=== PATIENT | male | born 1965 | race Asian ===

== ENCOUNTER 2017-02-07 04:21 | Emergency (ER) | payer OTHER ==
[2017-02-07 04:39] VITALS: BMI 26.5
--- NOTE | 2017-02-07 05:00 | PDOC ---
History of Present Illness - General History Source: Patient Exam Limitations: No Limitations - History of Present Illness Initial Comments: 02/07/17 05:33 The patient is a 51-year-old male with a significant past medical history of diabetes, CHF, end stage renal failure (on peritoneal dialysis every 4 to 6 hours), and presents to the emergency department BIBA with hypoglycemia and s/p fall from bed tonight. As per daughter, she heard the patient fall out of his bed, and she found the patient minimally responsive and still attached to the peritoneal dialysis bag that he started. She states the patient was lying facedown in a puddle of the dialysis liquid. The daughter believes the patient may have hit his head on the bedside table. He reports a mild headache secondary to the fall. The patient reports he did not eat his dinner tonight. As per EMS, his blood sugar was low at 37, and he was A&O x1 en route to the ED. He reports that he had a fever and cough recently, and took Darci-[place] Plus tonight after which he began to feel sleepy. He reports that he will be getting his dialysis tubing changed on Wednesday. He denies any head trauma or LOC. The patient denies chest pain, shortness of breath, and dizziness. The patient denies chills, nausea, vomit, diarrhea and constipation. The patient denies dysuria, frequency, urgency and hematuria. Allergies: NKDA Past Surgical History: abdominal tube placement for peritoneal dialysis Social History: no toxic habits reported PCP: Dr. Edis Causey Monotype Caster: Dr. Melara Location Manager: Dr. Marie <Anh Goetz - Last Filed: 02/07/17 05:33> <Nidhi Tejeda - Last Filed: 02/08/17 01:19> - General Chief Complaint: Blood Sugar Problem Stated Complaint: FALL/LOW BLOOD SUGAR Time Seen by Provider: 02/07/17 05:00 Past History <Anh Goetz - Last Filed: 02/07/17 05:33> - Past Medical History Diabetes: Yes Dialysis: Yes (Peritoneal) Kidney Stones: Yes (RF) - Surgical History Abdominal Surgery: No Appendectomy: No Cardiac Surgery: No Cholecystectomy: No Gastric Stapling: No GI Surgery: No Lung Surgery: No Neurologic Surgery: No - Immunization History Immunization Up to Date: No - Psycho/Social/Smoking Cessation Hx Anxiety: No Suicidal Ideation: No Smoking History: Never smoked Have you smoked in the past 12 months: No Information on smoking cessation initiated: No Hx Alcohol Use: No Drug/Substance Use Hx: No Substance Use Type: None <Nidhi Tejeda - Last Filed: 02/08/17 01:19> - Past Medical History Allergies/Adverse Reactions: Allergies Allergy/AdvReac Type Severity Reaction Status Date / Time No Known Allergies Allergy Verified 02/07/17 04:40 Home Medications: Ambulatory Orders Benzonatate [Tessalon Pearls -] 100 mg PO TID #30 capsule 02/07/17 Ezetimibe 12.5 mg PO BID 02/07/17 Furosemide [Lasix -] 40 mg PO DAILY 02/07/17 Glimepiride 20 mg PO DAILY 02/07/17 Insulin Glargine,Hum.rec.anlog [Lantus Solostar PEN (NF)] 6 units SQ HS Insulin NPH Hum/Reg Insulin Hm [Humulin 70/30 Kwikpen] 6 - 8 unit IVS TID Linagliptin [Tradjenta] 5 mg PO DAILY 02/07/17 Lisinopril 10 mg PO DAILY 02/07/17 Review of Systems - Review of Systems Able to Perform ROS?: Yes Comments:: 02/07/17 05:33 CONSTITUTIONAL: Present: (+) hypoglycemia Absent: fever, chills, diaphoresis, generalized weakness, malaise, loss of appetite HEENT: Absent: rhinorrhea, nasal congestion, throat pain, throat swelling, difficulty swallowing, mouth swelling, ear pain, eye pain, visual changes CARDIOVASCULAR: Absent: chest pain, syncope, palpitations, irregular heart rate, lightheadedness , peripheral edema RESPIRATORY: Absent: cough, shortness of breath, dyspnea with exertion, orthopnea, wheezing, stridor, hemoptysis GASTROINTESTINAL: Absent: abdominal pain, abdominal distension, nausea, vomiting, diarrhea, constipation, melena, hematochezia GENITOURINARY: Absent: dysuria, frequency, urgency, hesitancy, hematuria, flank pain, genital pain MUSCULOSKELETAL: Absent: myalgia, arthralgia, joint swelling SKIN: Absent: rash, itching, pallor HEMATOLOGIC/IMMUNOLOGIC: Absent: easy bleeding, easy bruising, lymphadenopathy, frequent infections ENDOCRINE: Absent: unexplained weight gain, unexplained weight loss, heat intolerance, cold intolerance NEUROLOGIC: Present: (+) headache s/p fall Absent: focal weakness or paresthesias, dizziness, unsteady gait, seizure, mental status changes, bladder or bowel incontinence PSYCHIATRIC: Absent: anxiety, depression, suicidal or homicidal ideation, hallucinations. <Anh Goetz - Last Filed: 02/07/17 05:33> *Physical Exam - Vital Signs Last Vital Signs Temp Pulse Resp BP Pulse Ox 97.7 F 66 18 163/78 100 02/07/17 04:32 02/07/17 04:32 02/07/17 04:32 02/07/17 04:32 02/07/17 04:32 - Physical Exam Comments: 02/07/17 05:33 GENERAL: Afebrile. Well developed, well nourished. Awake and alert. No acute distress. HEENT: Normocephalic, atraumatic, no hematomas on head. PERRLA, EOMI. No conjunctival pallor. Sclera are non-icteric. Moist mucous membranes. Oropharynx is clear. NECK: Supple. Full ROM. No JVD. Carotid pulses 2+ and symmetric, without bruits. No thyromegaly. No lymphadenopathy. CARDIOVASCULAR: Regular rate and rhythm. No murmurs, rubs, or gallops. Distal pulses are 2+ and symmetric. PULMONARY: No evidence of respiratory distress. Lungs clear to auscultation bilaterally. No wheezing, rales or rhonchi. ABDOMINAL: (+) Dialysis site looked good with no bleeding or leakage around site. Soft. Non -tender. Non-distended. No rebound or guarding. No organomegaly. Normoactive bowel sounds. MUSCULOSKELETAL (+) No cervical spine pain. No spinal pain. Normal range of motion at all joints. No bony deformities or tenderness. No CVA tenderness. EXTREMITIES: No cyanosis. No clubbing. No pitting edema. No calf tenderness. SKIN: Warm and dry. Normal capillary refill. No rashes. No jaundice. NEUROLOGICAL: Alert, awake, appropriate. Cranial nerves 2-12 intact. No deficits to light touch and temperature in face, upper extremities and lower extremities. No motor deficits in the in face, upper extremities and lower extremities. Normoreflexic in the upper and lower extremities. Normal speech. Toes are down- going bilaterally. PSYCHIATRIC: Cooperative. Good eye contact. Appropriate mood and affect. <GoetzKeishaAnh - Last Filed: 02/07/17 05:33> - Vital Signs Last Vital Signs Temp Pulse Resp BP Pulse Ox 97.7 F 66 18 163/78 100 02/07/17 04:32 02/07/17 04:32 02/07/17 04:32 02/07/17 04:32 02/07/17 04:32 <Nidhi Tejeda - Last Filed: 02/08/17 01:19> ED Treatment Course - LABORATORY CBC & Chemistry Diagram: 02/07/17 05:18 02/07/17 05:18 <Anh oGetz - Last Filed: 02/07/17 05:33> - LABORATORY CBC & Chemistry Diagram: 02/07/17 05:18 02/07/17 05:18 <Nidhi Tejeda - Last Filed: 02/08/17 01:19> Medical Decision Making - Medical Decision Making 02/07/17 06:31 Patient Name: Olman Henry This is a preliminary report by imaging batch or continuous still operator Exam: Noncontrast CT head Images: 80 Clinical indication: Hypoglycemia. Status post fall from bed. Findings: Multiple axial images were obtained of the brain without contrast. There is no mass-effect, midline shift or hemorrhage. There is no intra-axial or extra-axial fluid collection. The visualized portions of the paranasal sinuses are clear. The middle ear cavities and mastoids are clear. Impression: No mass effect or intracranial hemorrhage. THIS DOCUMENT HAS BEEN ELECTRONICALLY SIGNED Labs are pending. 02/07/17 06:51 CBC is normal; chem is pending. Pt fell out of bed, hypoglycemic. 37blood sugar. Pt was found by daughter when she heard a thud on the ground. Family called EMS, EMS gave glucose paste to the patient and he woke up. No neuro deficits in the ER. Pt is alert. States that he took darci seltzer nighttime cold preparation, got drowsy during his peritoneal dialysis that he manages himself QID. He fell asleep and rolled off his bed, which is 2 feet off from the ground. Pt has no pain and no broken nomes. Pt's head CT is normal. CXR is boot shaped heart -pt has known cardiomegaly and CHF. Pt has no complaints. He is due to replace his peritoneal catheter on Wednesday. He has no abd pain, but knows to consider SBP in case of fever early next week or abd pain next week. Pt has chem pending. He will be signed out to the day ER doc, who will feed him breakfast and d/c patient once he tolerates PO. Pt is stable for d/c. Repeat FS now is 129. <Nidhi Tejeda - Last Filed: 02/08/17 01:19> *DC/Admit/Observation/Transfer - Attestations Scribe Attestion: 02/07/17 05:34 Documentation prepared by Anh Goetz, acting as medical physiologist for Nidhi Tejeda MD. <Anh Goetz - Last Filed: 02/07/17 05:33> <Nidhi Tejeda - Last Filed: 02/08/17 01:19> Diagnosis at time of Disposition: Hypoglycemia - Discharge Dispostion Disposition: HOME Condition at time of disposition: Good - Prescriptions Prescriptions: Benzonatate [Tessalon Pearls -] 100 mg PO TID #30 capsule - Referrals Referrals: STAFF,NOT ON [Primary Care Provider] - - Patient Instructions Additional Instructions: Mr Henry- Make sure you eat today. Check your sugars frequently. Return to us if any problems. See your doctor this week Best- Dr. Saroj Jackson
[2017-02-07 05:26] LABS: BASOPHIL 0.7 % (0-2.0); EOSINOPHIL 5.5 % (0-4.5); MCH 32.4 pg (25.7-33.7); MCHC 34.5 g/dl (32.0-35.9); MEAN CELL VOLUME 93.9 fl (80-96); MEAN PLT VOLUME 7.6 fl (7.5-11.1); NEUTROPHILS 69.2 % (42.8-82.8); PLATELET COUNT 156 K/MM3 (134-434); RDW 12.8 % (11.9-15.9); WHITE BLOOD COUNT 4.8 K/mm3 (4.0-10.0)
[2017-02-07] MEDS ORDERED: guaiFENesin 200 MG/10 ML 10 ML UNIT-DOSE CUPS PO ONE (06:09)
[2017-02-07] MEDS ORDERED: ACETAMINOPHEN WITH CODEINE 300MG/30MG TABLET PO ONE (06:09)
[2017-02-07] MEDS ORDERED: ACETAMINOPHEN WITH CODEINE 300MG/30MG TABLET ONE (06:15)
[2017-02-07] MEDS ORDERED: guaiFENesin/D-METHORPHAN HB 10 ML UNIT-DOSE CUPS ONE (06:16)
[2017-02-07 07:02] LABS: ALBUMIN 3.1 g/dl (3.4-5.0); BILIRUBIN,TOTAL 0.3 mg/dL (0.2-1.0); COCKROFT - GAULT 23.04; CREATININE 4.4 mg/dL (0.7-1.3); TOT PROT 6.7 g/dl (6.4-8.2)
[2017-02-07 07:10] VITALS: TEMP 97.9
--- NOTE | 2017-02-07 07:12 | PDOC ---
*Physical Exam - Vital Signs Last Vital Signs Temp Pulse Resp BP Pulse Ox 97.9 F 63 18 141/83 99 02/07/17 07:10 02/07/17 06:40 02/07/17 06:40 02/07/17 06:40 02/07/17 06:40 ED Treatment Course - LABORATORY CBC & Chemistry Diagram: 02/07/17 05:18 02/07/17 05:18 - ADDITIONAL ORDERS Additional order review: Laboratory Results 02/07/17 05:18 Sodium 135 L Potassium 4.1 Chloride 95 L Carbon Dioxide 27 Anion Gap 13 BUN 45 H Creatinine 4.4 H Creat Clearance w eGFR 14.14 Random Glucose 68 L Calcium 8.0 L Total Bilirubin 0.3 AST 29 ALT 26 Alkaline Phosphatase 57 Total Protein 6.7 Albumin 3.1 L 02/07/17 05:18 RBC 3.83 L MCV 93.9 MCHC 34.5 RDW 12.8 MPV 7.6 Neutrophils % 69.2 Lymphocytes % 13.1 Monocytes % 11.5 H Eosinophils % 5.5 H Basophils % 0.7 - Medications Given in the ED: ED Medications Discontinued Medications Generic Name Dose Route Start Last Admin Trade Name Renatoq PRN Reason Stop Dose Admin Acetaminophen/Codeine Phosphate 2 tab 02/07/17 06:09 02/07/17 06:18 Tylenol # 3 - PO 02/07/17 06:10 2 tab ONCE ONE Administration Guaifenesin 10 ml 02/07/17 06:09 02/07/17 06:18 Robitussin - PO 02/07/17 06:10 10 ml ONCE ONE Administration Medical Decision Making - Medical Decision Making 02/07/17 08:59 Sugars stabilized - Patient wants to go home. Most recent Blood Sugar is 98 *DC/Admit/Observation/Transfer Diagnosis at time of Disposition: Hypoglycemia - Discharge Dispostion Disposition: HOME Condition at time of disposition: Good - Prescriptions Prescriptions: Benzonatate [Tessalon Pearls -] 100 mg PO TID #30 capsule - Referrals Referrals: STAFF,NOT ON [Primary Care Provider] - - Patient Instructions Additional Instructions: Mr Henry- Make sure you eat today. Check your sugars frequently. Return to us if any problems. See your doctor this week Best- Dr. Saroj Jackson - Post Discharge Activity
[2017-02-07 09:17] VITALS: BP 125/76; PULSE 74
== END 2017-02-07 09:37 | disposition home or self-care (01) ==
LOC: SUPCPDRO 04:21 → JER 04:21
DX: E16.1 Other hypoglycemia (principal); I50.9 Heart failure, unspecified; E11.9 Type 2 diabetes mellitus without complications; Z79.4 Long term (current) use of insulin; I12.0 Hypertensive chronic kidney disease with stage 5 chronic kidney disease or end stage renal disease; E08.22 Diabetes mellitus due to underlying condition with diabetic chronic kidney disease; N18.6 End stage renal disease; N17.8 Other acute kidney failure; Z99.2 Dependence on renal dialysis
CPT/HCPCS: 36415; 70450-TC; 71010-TC; 80053; 85025; 99283-25

== ENCOUNTER 2017-02-08 09:53 | Observation (INO) | payer OTHER ==
[2017-02-08 10:12] VITALS: BMI 26.5
--- NOTE | 2017-02-08 10:37 | PDOC ---
History of Present Illness - General History Source: Patient, Old Records Exam Limitations: No Limitations - History of Present Illness Initial Comments: 02/08/17 10:38 The patient is a 51-year-old man, accompanied by family, with a significant past medical history of hypertension, hypercholesterolemia, end-stage renal disease (on peritoneal dialysis placed on December 2016; q. 6-12 hours), diabetes mellitus, pneumonia and congestive heart failure, who presents to the emergency department via walk-in for further evaluation of hypoglycemia and altered mental status. As per patient's daughter, the patient had endorsed an intermitted productive cough with yellow phlegm for the past week. Patient was evaluated Wednesday morning at [facility] for which a Chest X-Ray and Flu Swab was performed and was negative. That night, the patient presented to this ED, due to a fall and altered mental status. He was also was found to be hypoglycemic to 37 in field by EMS. Workup included Head CT, Chest X-Ray, which were negative for any acute pathology. Patient's sugars were stabilized and he was discharged with a blood glucose measurement of 98. Post discharge, the patient was feeling better and had eggs and potatoes at a dinner. During the evening, the patient had some soup with a piece of bread and was noted to vomit. He was found this morning, at approximately 09:00AM, coughing constantly, warm to the touch, lying flat and sweaty. Patient;s daughter attempted to give him orange juice, but the patient vomited. She states that the patient was stating that he felt off and didn't feel good and wanted EMS to be activated. Patient was found to have a blood glucose of 70 in field. Patient admits that he does not recall these events and only recalls his way to the ER via ambulance. He admits he has regained full consciousness on ED arrival. Patient's daughter expresses concern for possible peritoneal dialyses catheter infection, due to his fever. Patient was scheduled to have his catheter changes today at 10:00AM at [facility]. Patient currently complains of a mild headache. No other symptoms. No chest pain , shortness of breath, lightheadedness, dizziness, abdominal pain, diarrhea. No urinary complaints. Allergies: No Known Drug Allergies. Past Surgical History: Abdominal tube placement for peritoneal dialysis. Angioplasty. Social History: No tobacco, EtOH and recreational drug use. Primary Care Physician: Dr. Edis Causey Private Branch Exchange Installer: Dr. Marie Rrt: Dr. Lincoln [phone] <CarrascoRebeka - Last Filed: 02/08/17 12:48> <AndrewDevang - Last Filed: 02/08/17 12:52> - General Stated Complaint: DIABETIC EPISODE Time Seen by Provider: 02/08/17 10:10 Past History <Rebeka Carrasco - Last Filed: 02/08/17 12:48> - Past Medical History Diabetes: Yes Dialysis: Yes (Peritoneal) GI Disorders: Yes (esrf) Kidney Stones: Yes (RF) - Surgical History Abdominal Surgery: No Appendectomy: No Cardiac Surgery: Yes (angioplasty) Cholecystectomy: No Gastric Stapling: No GI Surgery: No Lung Surgery: No Neurologic Surgery: No - Immunization History Immunization Up to Date: No - Psycho/Social/Smoking Cessation Hx Anxiety: No Suicidal Ideation: No Smoking History: Never smoked Have you smoked in the past 12 months: No Hx Alcohol Use: No Drug/Substance Use Hx: No Substance Use Type: None <Lonnie Moralesfaele - Last Filed: 02/08/17 12:52> - Past Medical History Allergies/Adverse Reactions: Allergies Allergy/AdvReac Type Severity Reaction Status Date / Time No Known Allergies Allergy Verified 02/08/17 10:12 Home Medications: Ambulatory Orders Benzonatate [Tessalon Pearls -] 100 mg PO TID #30 capsule 02/07/17 Furosemide [Lasix -] 40 mg PO DAILY 02/07/17 Insulin Glargine,Hum.rec.anlog [Lantus Solostar PEN (NF)] 6 units SQ HS Insulin NPH Hum/Reg Insulin Hm [Humulin 70/30 Kwikpen] 6 - 8 unit IVS TID Linagliptin [Tradjenta] 5 mg PO DAILY 02/07/17 Lisinopril 10 mg PO DAILY 02/07/17 Ezetimibe 0 mg PO BID 02/08/17 Glimepiride [Amaryl -] 0 mg PO DAILY 02/08/17 Review of Systems - Review of Systems Constitutional: Yes: Chills, Fever, Night Sweats Respiratory: Yes: Cough. No: Shortness of Breath Cardiac (ROS): No: Chest Pain ABD/GI: Yes: Vomiting. No: Constipated, Diarrhea : No: Dysuria Musculoskeletal: No: Muscle Pain Integumentary: No: Rash Neurological: No: Headache All Other Systems: Reviewed and Negative <Devang Morales - Last Filed: 02/08/17 12:52> *Physical Exam - Vital Signs Last Vital Signs Temp Pulse Resp BP Pulse Ox 97.6 F 68 20 166/84 97 02/08/17 10:00 02/08/17 10:00 02/08/17 10:00 02/08/17 10:00 02/08/17 10:00 - Physical Exam Comments: 02/08/17 10:38 GENERAL: The patient is awake, alert, and fully oriented, in no acute distress. HEAD: Normal with no signs of trauma. EYES: Pupils equal, round and reactive to light, extraocular movements intact, sclera anicteric, conjunctiva clear with no pallor. ENT: Ears normal, nares patent, oropharynx clear without exudates. Moist mucous membranes. NECK: Normal range of motion, supple without lymphadenopathy, JVD, or masses. LUNGS: There are some slight crackles at the bases, bilaterally HEART: Regular rate and rhythm, normal S1 and S2 without murmur or rub. ABDOMEN: Right periotoneal dialysis catheter site. Soft/nontender/nondistended. BS wnl. No guarding or rebound. No palpable masses. No hepatosplenomegaly. EXTREMITIES: Normal range of motion, no edema. No clubbing or cyanosis. No cords, erythema, or tenderness. NEUROLOGICAL: Cranial nerves II through XII grossly intact. Normal speech, normal gait. PSYCH: Normal mood, normal affect. SKIN: Warm, Dry, normal turgor, no rashes or lesions noted. <Rebeka Carrasco - Last Filed: 02/08/17 12:48> - Vital Signs Last Vital Signs Temp Pulse Resp BP Pulse Ox 97.6 F 68 20 166/84 97 02/08/17 10:00 02/08/17 10:00 02/08/17 10:00 02/08/17 10:00 02/08/17 10:00 <Devang Morales - Last Filed: 02/08/17 12:52> Heart Score/ECG Review #1 ECG reviewed & interpreted by me at: 10:04 General ECG Interpretation: Sinus Rhythm, Normal Rate (82), Normal Intervals ( qtc 511, RBBB), No acute ischemic changes (TWI V3) Compared to previous ECG there are: Previous ECG unavail <Devang Morales - Last Filed: 02/08/17 12:52> ED Treatment Course - LABORATORY CBC & Chemistry Diagram: 02/08/17 11:20 02/08/17 11:20 <Rebeka Carrasco - Last Filed: 02/08/17 12:48> - LABORATORY CBC & Chemistry Diagram: 02/08/17 11:20 02/08/17 11:20 <Devang Morales - Last Filed: 02/08/17 12:52> Medical Decision Making - Medical Decision Making 02/08/17 12:[address] Hartman. Immediate response. Case was discussed. <Rebeka Carrasco - Last Filed: 02/08/17 12:48> - Medical Decision Making 02/08/17 11:49 A portion of this note was documented by scribe services under my direction. I have reviewed the details of the note, within reason, and agree with the documentation with the following case summary and management plan written by me. 51-year-old male with history of hypertension, end-stage renal disease on peritoneal dialysis management primarily at [facility] presented for the first time here 2 nights ago with fall in the setting of hypoglycemia, was discharged after workup was unremarkable. Patient presents now with yet another episode of disorientation/altered mental status in the setting of hypoglycemia and persistent vomiting with subjective fevers and chills and cough for one week. Patient performs his own peritoneal dialysis about 4 times a day, denies any abdominal pain. Afebrile here, vital signs normal, alert and oriented Atraumatic soft/nontender/nondistended. Peritoneal dialysis catheter in place and right lower quadrant neurologically intact 51-year-old male with end-stage renal disease/peritoneal dialysis presents with labile glucose levels and transient alteration of consciousness. Presentation overall seems most concerning for infectious/septic process, question pneumonia given the cough, question gastritis given the vomiting, question SBP. Sepsis protocol initiated, all cultures sent including peritoneal fluid IV fluids Chest x-ray, EKG Reassess, likely admission. 02/08/17 12:50 White count 7.5 with normal differential, lactate normal, creatinine at 4.1 with troponin 0.11, urinalysis clear without evidence of infection, peritoneal fluid analysis White blood cell count is pending, but glucose level is normal. Chest x-ray without acute infiltrate. Overall remains oriented at this time, we'll admit for continued sepsis workup and monitoring of labile glucose levels. Accepted for inpatient med/surg by Dr. Hartman <Devang Morales - Last Filed: 02/08/17 12:52> *DC/Admit/Observation/Transfer - Attestations Scribe Attestion: 02/08/17 10:39 Documentation prepared by Rebeka Carrasco, acting as medical records auditor for Devang Morales MD. <Rebeka Carrasco - Last Filed: 02/08/17 12:48> - Discharge Dispostion Admit: Yes <Devang Morales - Last Filed: 02/08/17 12:52> Diagnosis at time of Disposition: End-stage renal disease on peritoneal dialysis, Hypoglycemia Altered mental status Qualifiers: Altered mental status type: transient alteration of awareness Qualified Code(s) : R40.4 - Transient alteration of awareness - Discharge Dispostion Condition at time of disposition: Fair - Referrals Referrals: STAFF,NOT ON [Primary Care Provider] -
[2017-02-08] MEDS ORDERED: SODIUM CHLORIDE 1,000 ML IV STA (10:56)
[2017-02-08 11:33] LABS: VENOUS PH 7.35 (7.32-7.42)
[2017-02-08 11:35] LABS: BASOPHIL 0.4 % (0-2.0); EOSINOPHIL 1.6 % (0-4.5); MCH 32.6 pg (25.7-33.7); MCHC 34.6 g/dl (32.0-35.9); MEAN CELL VOLUME 94.4 fl (80-96); MEAN PLT VOLUME 8.2 fl (7.5-11.1); NEUTROPHILS 84.2 % (42.8-82.8); PLATELET COUNT 173 K/MM3 (134-434); WHITE BLOOD COUNT 7.5 K/mm3 (4.0-10.0)
[2017-02-08 11:40] LABS: URINE APPEARANCE CLEAR; URINE BILIRUBIN NEGATIVE (NEGATIVE); URINE COLOR LTYELLOW; URINE GLUCOSE (UA) NEGATIVE (NEGATIVE); URINE KETONE NEGATIVE (NEGATIVE); URINE LEUK ESTERASE NEGATIVE (NEGATIVE); URINE NITRITE NEGATIVE (NEGATIVE); URINE UROBILINOGEN NEGATIVE E.U./dl (0.2-1.0)
[2017-02-08 11:42] LABS: URINE BLOOD 1+ (NEGATIVE); URINE PROTEIN 2+ (NEGATIVE)
[2017-02-08 11:53] LABS: ALBUMIN 3.2 g/dl (3.4-5.0); CALCIUM 8.6 mg/dL (8.5-10.1); COCKROFT - GAULT 24.73; CREATININE 4.1 mg/dL (0.7-1.3)
[2017-02-08 11:58] LABS: BILIRUBIN,TOTAL 0.5 mg/dL (0.2-1.0); INR 0.99 (0.82-1.09); PROTHROMBIN TIME (PATIENT) 10.9 SEC (9.98-11.88); TOT PROT 7.1 g/dl (6.4-8.2); TROPONIN I 0.11 ng/ml (0.00-0.05)
[2017-02-08 12:01] LABS: ACTIVATED PTT 30.3 SECONDS (26.9-34.4)
[2017-02-08 12:29] LABS: URINE MUCUS RARE; URINE RBC 2 /hpf (0-3); URINE WBC 1 /hpf (3-5)
[2017-02-08] MEDS ORDERED: VANCOMYCIN 1,000 MG in DEXTROSE 5%-WATER - 250 ML IVPB ONE (12:49)
[2017-02-08] MEDS ORDERED: PIPERACILLIN/TAZOB 3.375 GM/50 ML PRE-DOCKED IVPB ONE (12:49)
[2017-02-08] MEDS ORDERED: PIPERACILLIN/TAZOB 3.375 GM 50 ML IVPB ONE (13:05)
[2017-02-08] MEDS ORDERED: VANCOMYCIN 1 GRAM (PRE-DOCKED) 250 ML IVPB ONE (13:09)
--- NOTE | 2017-02-08 13:59 | EKG ---
Test Reason : Blood Pressure : / mmHG Vent. Rate : 082 BPM Atrial Rate : 082 BPM P-R Int : 172 ms QRS Dur : 140 ms QT Int : 438 ms P-R-T Axes : 019 -51 -01 degrees QTc Int : 511 ms NORMAL SINUS RHYTHM LEFT AXIS DEVIATION RIGHT BUNDLE BRANCH BLOCK ABNORMAL ECG NO PREVIOUS ECGS AVAILABLE Confirmed by DON LEYVA, ROBIN ([id number]) on 02/08/2017 1:59:18 PM Referred By: Confirmed By:ROBIN OCHOA MD
[2017-02-08] MEDS: PERITONEAL DIALYSIS 2.5% IP SCH ×2 (15:13→22:22)
[2017-02-08 15:25] LABS: PERITONEAL FLUID LYMPHOCYTE 10 %; PERITONEAL FLUID MACROPHAGE 89 %; PERITONEAL FLUID MESOTHELIAL 1 %
--- NOTE | 2017-02-08 18:05 | HP ---
Admitting History and Physical - Primary Care Physician PCP: Marifer Hartman - Admission History of Present Illness: 51-year-old man, accompanied by family, with a significant past medical history of hypertension, hypercholesterolemia, end-stage renal disease (on peritoneal dialysis placed on December 2016; q. 6-12 hours), diabetes mellitus, pneumonia and congestive heart failure, who presents to the emergency department via walk-in for further evaluation of hypoglycemia and altered mental status. As per patient 's daughter, the patient had endorsed an intermitted productive cough with yellow phlegm for the past week. Patient was evaluated Wednesday morning at [facility] for which a Chest X-Ray and Flu Swab was performed and was negative. That night, the patient presented to this ED, due to a fall and altered mental status. He was also was found to be hypoglycemic to 37 in field by EMS. Workup included Head CT, Chest X-Ray, which were negative for any acute pathology. Patient's sugars were stabilized and he was discharged with a blood glucose measurement of 98. - Past Medical History Cardiovascular: Yes: HTN, Hyperlipdemia Renal/: Yes: Other (ESR) - Smoking History Smoking history: Never smoked Have you smoked in the past 12 months: No - Alcohol/Substance Use Hx Alcohol Use: No Home Medications - Allergies Allergies/Adverse Reactions: Allergies Allergy/AdvReac Type Severity Reaction Status Date / Time No Known Allergies Allergy Verified 02/08/17 10:12 - Home Medications Home Medications: Ambulatory Orders Benzonatate [Tessalon Perle -] 100 mg PO TID #30 capsule 02/07/17 Furosemide [Lasix -] 40 mg PO DAILY 02/07/17 Insulin Glargine,Hum.rec.anlog [Lantus Solostar PEN -] 6 units SQ HS 02/07/17 Insulin NPH Hum/Reg Insulin Hm [Humulin 70/30 Kwikpen] 6 - 8 unit IVS TID Linagliptin [Tradjenta] 5 mg PO DAILY 02/07/17 Lisinopril 10 mg PO DAILY 02/07/17 Ezetimibe 0 mg PO BID 02/08/17 Glimepiride [Glimepiride -] 0 mg PO DAILY 02/08/17 Amoxicillin/Potassium Clav [Augmentin 875-125 Tablet] 1 each PO BID #14 tablet 02/09/17 Physical Examination Vital Signs: Vital Signs Temperature 97.9 F 02/08/17 14:50 Pulse Rate 66 02/08/17 14:50 Respiratory Rate 18 02/08/17 14:50 Blood Pressure 149/78 02/08/17 14:50 O2 Sat by Pulse Oximetry (%) 96 02/08/17 15:01 Constitutional: Yes: No Distress Eyes: Yes: Conjunctiva Clear HENT: Yes: Atraumatic Neck: Yes: Supple Cardiovascular: Yes: Regular Rate and Rhythm Respiratory: Yes: CTA Bilaterally Gastrointestinal: Yes: Normal Bowel Sounds Extremities: Yes: WNL Neurological: Yes: Alert, Oriented Problem List - Problems (1) Altered mental status Assessment/Plan: could be due to hypo glycemia better now Code(s): R41.82 - ALTERED MENTAL STATUS, UNSPECIFIED Qualifiers: Altered mental status type: transient alteration of awareness Qualified Code(s): R40.4 - Transient alteration of awareness (2) ESRD on peritoneal dialysis Code(s): N18.6 - END STAGE RENAL DISEASE Z99.2 - DEPENDENCE ON RENAL DIALYSIS (3) Hypoglycemia Code(s): E16.2 - HYPOGLYCEMIA, UNSPECIFIED (4) Diabetes Code(s): E11.9 - TYPE 2 DIABETES MELLITUS WITHOUT COMPLICATIONS Assessment/Plan Laboratory Tests 02/08/17 02/08/17 02/08/17 10:04 11:15 11:18 WBC RBC Hgb Hct MCV MCHC RDW Plt Count MPV Neutrophils % Lymphocytes % Monocytes % Eosinophils % Basophils % INR PTT (Actin FS) VBG pH 7.35 POC VBG pCO2 48.2 POC VBG pO2 28.7 Mixed VBG HCO3 26.0 H Sodium Potassium Chloride Carbon Dioxide Anion Gap BUN Creatinine Creat Clearance w eGFR POC Glucometer [id number] Random Glucose Lactic Acid Calcium Total Bilirubin AST ALT Alkaline Phosphatase Creatine Kinase Creatine Kinase Index CK-MB (CK-2) CK-MB (CK-2) Rel Index Troponin I Total Protein Albumin Urine Color Urine Appearance Urine pH Ur Specific [place] Urine Protein Urine Glucose (UA) Urine Ketones Urine Blood Urine Nitrite Urine Bilirubin Urine Urobilinogen Ur Leukocyte Esterase Urine RBC Urine WBC Urine Mucus Peritoneal WBC 36 Peritoneal RBC 310 Periton Neutrophils Y Periton Lymphocytes 10 Periton Mesothelial 1 Periton Macrophages 89 Peritoneal Tot Protein 0 Peritoneal Albumin 0 Peritoneal LDH 15 Peritoneal Glucose 293 Peritoneal Amylase 7 Blood Type Antibody Screen 05/02/08/17 02/08/17 11:20 11:20 11:20 WBC 7.5 D RBC 4.15 Hgb 13.5 Hct 39.1 MCV 94.4 MCHC 34.6 RDW 13.0 Plt Count 173 MPV 8.2 Neutrophils % 84.2 H D Lymphocytes % 8.5 D Monocytes % 5.3 Eosinophils % 1.6 Basophils % 0.4 INR 0.99 PTT (Actin FS) 30.3 VBG pH POC VBG pCO2 POC VBG pO2 Mixed VBG HCO3 Sodium Potassium Chloride Carbon Dioxide Anion Gap BUN Creatinine Creat Clearance w eGFR POC Glucometer Random Glucose Lactic Acid Calcium Total Bilirubin AST ALT Alkaline Phosphatase Creatine Kinase Creatine Kinase Index CK-MB (CK-2) CK-MB (CK-2) Rel Index Troponin I Total Protein Albumin Urine Color Ltyellow Urine Appearance Clear Urine pH 6.0 Ur Specific [place] 1.015 Urine Protein 2+ H Urine Glucose (UA) Negative Urine Ketones Negative Urine Blood 1+ H Urine Nitrite Negative Urine Bilirubin Negative Urine Urobilinogen Negative Ur Leukocyte Esterase Negative Urine RBC 2 Urine WBC 1 Urine Mucus Rare Peritoneal WBC Peritoneal RBC Periton Neutrophils Periton Lymphocytes Periton Mesothelial Periton Macrophages Peritoneal Tot Protein Peritoneal Albumin Peritoneal LDH Peritoneal Glucose Peritoneal Amylase Blood Type Antibody Screen 02/08/17 02/08/17 02/08/17 11:20 11:20 11:20 WBC RBC Hgb Hct MCV MCHC RDW Plt Count MPV Neutrophils % Lymphocytes % Monocytes % Eosinophils % Basophils % INR PTT (Actin FS) VBG pH POC VBG pCO2 POC VBG pO2 Mixed VBG HCO3 Sodium 137 Potassium 4.7 Chloride 97 L Carbon Dioxide 26 Anion Gap 14 BUN 45 H Creatinine 4.1 H Creat Clearance w eGFR 15.34 POC Glucometer Random Glucose 78 Lactic Acid 1.102 Calcium 8.6 Total Bilirubin 0.5 D AST 38 H D ALT 30 Alkaline Phosphatase 60 Creatine Kinase 907 H Creatine Kinase Index 0.7 CK-MB (CK-2) 5.619 H CK-MB (CK-2) Rel Index Troponin I 0.11 H Total Protein 7.1 Albumin 3.2 L Urine Color Urine Appearance Urine pH Ur Specific [place] Urine Protein Urine Glucose (UA) Urine Ketones Urine Blood Urine Nitrite Urine Bilirubin Urine Urobilinogen Ur Leukocyte Esterase Urine RBC Urine WBC Urine Mucus Peritoneal WBC Peritoneal RBC Periton Neutrophils Periton Lymphocytes Periton Mesothelial [place] Macrophages Peritoneal Tot Protein Peritoneal Albumin Peritoneal LDH Peritoneal Glucose Peritoneal Amylase Blood Type O POSITIVE Antibody Screen Negative 02/08/17 11:20 WBC RBC Hgb Hct MCV MCHC RDW Plt Count MPV Neutrophils % Lymphocytes % Monocytes % Eosinophils % Basophils % INR PTT (Actin FS) VBG pH POC VBG pCO2 POC VBG pO2 Mixed VBG HCO3 Sodium Potassium Chloride Carbon Dioxide Anion Gap BUN Creatinine Creat Clearance w eGFR POC Glucometer Random Glucose Lactic Acid Calcium Total Bilirubin AST ALT Alkaline Phosphatase Creatine Kinase Creatine Kinase Index CK-MB (CK-2) CK-MB (CK-2) Rel Index Cancelled Troponin I Total Protein Albumin Urine Color Urine Appearance Urine pH Ur Specific [place] Urine Protein Urine Glucose (UA) Urine Ketones Urine Blood Urine Nitrite Urine Bilirubin Urine Urobilinogen Ur Leukocyte Esterase Urine RBC Urine WBC Urine Mucus Peritoneal WBC Peritoneal RBC Periton Neutrophils Periton Lymphocytes Periton Mesothelial [place] Macrophages Peritoneal Tot Protein Peritoneal Albumin Peritoneal LDH Peritoneal Glucose Peritoneal Amylase Blood Type Antibody Screen Active Medications Generic Name Dose Route Start Last Admin Trade Name Freq PRN Reason Stop Dose Admin Peritoneal Dialysis Solution 3,000 mls @ 750 mls/hr 02/08/17 13:15 02/08/17 15: 13 Dianeal 2.5% IP 750 mls/hr Q6H NANCY Administration a/p 1.dm will check bgms, hold po meds could be that pt was dizzy due to hypoglycemia 2.cough with plegm will start abx for bronchtis cxtr no pna 3.esrd on peritoneal dialysis
--- NOTE | 2017-02-08 18:41 | CONSULT ---
Consult Consult Specialty:: infectious disease Reason for Consultation:: r/o pneumonia,cough - History of Present Illness Chief Complaint: cough sob History of Present Illness: 51-year-old man, accompanied by family, with a significant past medical history of hypertension, hypercholesterolemia, end-stage renal disease (on peritoneal dialysis placed on December 2016; q. 6-12 hours), diabetes mellitus, pneumonia and congestive heart failure, who got admitted because of hypoglycemia and altered mental status. As per patient's daughter, the patient had endorsed an intermitted productive cough with yellow phlegm for the past week. Patient was evaluated Wednesday morning at [facility] for which a Chest X-Ray and Flu Swab was performed and was negative. That night, the patient presented to this ED, due to a fall and altered mental status. He was also was found to be hypoglycemic to 37 in field by EMS. Workup included Head CT, Chest X-Ray, which were negative for any acute pathology. Patient's sugars were stabilized and he was discharged with a blood glucose measurement of 98. The above was the history of the patient patient was evaluated and started on treatment discussing with the patient now he says he feels much better and breathing is much better also - History Source History Provided By: Patient, Medical Record Limitations to Obtaining History: No Limitations - Past Medical History Cardio/Vascular: Yes: HTN, Hyperlipdemia Renal/: Yes: Other (ESR) - Alcohol/Substance Use Hx Alcohol Use: No - Smoking History Smoking history: Never smoked Have you smoked in the past 12 months: No Home Medications - Allergies Allergies/Adverse Reactions: Allergies Allergy/AdvReac Type Severity Reaction Status Date / Time No Known Allergies Allergy Verified 02/08/17 10:12 - Home Medications Home Medications: Ambulatory Orders Benzonatate [Tessalon Perle -] 100 mg PO TID #30 capsule 02/07/17 Furosemide [Lasix -] 40 mg PO DAILY 02/07/17 Insulin Glargine,Hum.rec.anlog [Lantus Solostar PEN -] 6 units SQ HS 02/07/17 Insulin NPH Hum/Reg Insulin Hm [Humulin 70/30 Kwikpen] 6 - 8 unit IVS TID Linagliptin [Tradjenta] 5 mg PO DAILY 02/07/17 Lisinopril 10 mg PO DAILY 02/07/17 Ezetimibe 0 mg PO BID 02/08/17 Amoxicillin/Potassium Clav [Augmentin 875-125 Tablet] 1 each PO BID #14 tablet 02/09/17 Review of Systems - Review of Systems Constitutional: reports: Other Eyes: reports: No Symptoms HENT: reports: No Symptoms Neck: reports: No Symptoms Cardiovascular: reports: No Symptoms Respiratory: reports: Cough, SOB, Wheezing, Other (sputum production) Gastrointestinal: reports: No Symptoms Genitourinary: reports: No Symptoms Musculoskeletal: reports: Muscle Weakness Neurological: reports: No Symptoms Endocrine: reports: No Symptoms Hematology/Lymphatic: reports: No Symptoms Psychiatric: reports: No Symptoms Physical Exam Vital Signs: Vital Signs Temperature 97.9 F 02/08/17 14:50 Pulse Rate 66 02/08/17 14:50 Respiratory Rate 18 02/08/17 14:50 Blood Pressure 149/78 02/08/17 14:50 O2 Sat by Pulse Oximetry (%) 96 02/08/17 18:09 Constitutional: Yes: Well Nourished, Mild Distress Eyes: Yes: Conjunctiva Clear HENT: Yes: Atraumatic Neck: Yes: Supple Cardiovascular: Yes: Regular Rate and Rhythm Respiratory: Yes: On Nasal O2, Poor Air Entry, Rhonchi Gastrointestinal: Yes: Normal Bowel Sounds, Soft Musculoskeletal: Yes: WNL Extremities: Yes: WNL Integumentary: Yes: WNL Neurological: Yes: Alert, Oriented Psychiatric: Yes: Alert, Oriented Imaging - Results Chest X-ray: Report Reviewed, Image Reviewed Assessment/Plan after evaluating the patient he is showing more of a bronchitits type of picture with congestion i do not think patient has active pna thought there might be some element playing a part he already has been on abx Problem List - Problems (1) Altered mental status Assessment/Plan: could be due to hypo glycemia better now Code(s): R41.82 - ALTERED MENTAL STATUS, UNSPECIFIED Qualifiers: Altered mental status type: transient alteration of awareness Qualified Code(s): R40.4 - Transient alteration of awareness (2) ESRD on peritoneal dialysis Code(s): N18.6 - END STAGE RENAL DISEASE Z99.2 - DEPENDENCE ON RENAL DIALYSIS (3) Hypoglycemia Code(s): E16.2 - HYPOGLYCEMIA, UNSPECIFIED (4) Diabetes Code(s): E11.9 - TYPE 2 DIABETES MELLITUS WITHOUT COMPLICATIONS plan continue abx for now can switch to oral abx tomorrow
[2017-02-08] MEDS ORDERED: INSULIN (NOVOLOG) ASPART 100 UNITS/ML 10ML VIAL ONE (18:46)
[2017-02-08] MEDS: INSULIN SLIDING SCALE (NOVOLOG) 1 VIAL SQ SCH ×2 (18:49→21:40)
[2017-02-08] MEDS: CEFTRIAXONE 50 ML IVPB SCH (19:17)
[2017-02-08 20:24] LABS: TROPONIN I 0.14 ng/ml (0.00-0.05)
[2017-02-08] MEDS: AZITHROMYCIN 250 MG TABLET (FP) PO SCH (21:39)
[2017-02-08] MEDS ORDERED: EZETIMIBE 10 MG TABLET (FP) PO SCH ×2 (22:00)
[2017-02-09] MEDS: PERITONEAL DIALYSIS 2.5% IP SCH ×5 (01:25→19:07)
[2017-02-09] MEDS: INSULIN SLIDING SCALE (NOVOLOG) 1 VIAL SQ SCH ×3 (06:40→16:46)
[2017-02-09] MEDS ORDERED: sitaGLIPtin PHOSPHATE 25 MG TABLET (FP) PO SCH (07:00)
[2017-02-09] MEDS ORDERED: PT OWN MED DRAWER 7, Y5N ONE (09:38)
--- NOTE | 2017-02-09 09:40 | PN ---
Progress Note, Physician History of Present Illness: patient doing much better no new issues cough much less breathing much better - Current Medication List Current Medications: Active Medications Azithromycin (Zithromax -) 250 mg PO DAILY [facility] Last Admin: 02/08/17 21:39 Dose: 250 mg Ezetimibe (Zetia -) 10 mg PO BID [facility] Furosemide (Lasix -) 40 mg PO DAILY [facility] Peritoneal Dialysis Solution (Dianeal 2.5%) 3,000 mls @ 750 mls/hr IP Q6H [facility] Last Admin: 02/09/17 01:25 Dose: Not Given Ceftriaxone Sodium (Rocephin 1gm Ivpb (Pre-Docked)) 50 mls @ 100 mls/hr IVPB DAILY [facility] Last Admin: 02/08/17 19:17 Dose: 100 mls/hr Insulin Aspart (Novolog Vial Sliding Scale -) 1 vial SQ ACHS [facility] PRN Reason: Protocol Last Admin: 02/09/17 06:40 Dose: Not Given Sitagliptin Phosphate (Januvia -) 25 mg PO DAILY@0700 [facility] Last Admin: 02/09/17 06:43 Dose: 25 mg - Objective Vital Signs: Vital Signs Temperature 98.4 F 02/09/17 05:57 Pulse Rate 72 02/09/17 05:57 Respiratory Rate 20 02/09/17 05:57 Blood Pressure 142/78 02/09/17 05:57 O2 Sat by Pulse Oximetry (%) 96 02/09/17 00:23 Constitutional: Yes: No Distress, Calm Cardiovascular: Yes: Regular Rate and Rhythm Respiratory: Yes: Poor Air Entry, Rhonchi Gastrointestinal: Yes: Normal Bowel Sounds, Soft Musculoskeletal: Yes: WNL Extremities: Yes: WNL Neurological: Yes: Alert, Oriented Psychiatric: Yes: Alert, Oriented Labs: INR, PTT INR 0.99 (0.82-1.09) 02/08/17 11:20 Assessment/Plan after evaluating the patient he is showing more of a bronchitits type of picture with congestion i do not think patient has active pna thought there might be some element playing a part he already has been on abx Problem List - Problems (1) Altered mental status Assessment/Plan: could be due to hypo glycemia better now Code(s): R41.82 - ALTERED MENTAL STATUS, UNSPECIFIED Qualifiers: Altered mental status type: transient alteration of awareness Qualified Code(s): R40.4 - Transient alteration of awareness (2) ESRD on peritoneal dialysis Code(s): N18.6 - END STAGE RENAL DISEASE Z99.2 - DEPENDENCE ON RENAL DIALYSIS (3) Hypoglycemia Code(s): E16.2 - HYPOGLYCEMIA, UNSPECIFIED (4) Diabetes Code(s): E11.9 - TYPE 2 DIABETES MELLITUS WITHOUT COMPLICATIONS plan can switch to oral abx incentive collette rest as per primary team follow up with primary care
[2017-02-09 09:42] VITALS: BP 148/90; TEMP 98.1
[2017-02-09] MEDS: CEFTRIAXONE 50 ML IVPB SCH (09:42)
[2017-02-09] MEDS: AZITHROMYCIN 250 MG TABLET (FP) PO SCH (09:43)
[2017-02-09] MEDS ORDERED: PATIENT'S OWN MEDICATION (NON-FORMULARY) (Linagliptin [Tradjenta] 5 MG) PO SCH (10:00)
[2017-02-09] MEDS ORDERED: FUROSEMIDE 40 MG TABLET (FP) PO SCH (10:00)
[2017-02-09 14:36] VITALS: PULSE 70
[2017-02-09] MEDS ORDERED: INSULIN (NOVOLOG) ASPART 100 UNITS/ML 10ML VIAL ONE (16:42)
--- NOTE | 2017-02-09 17:01 | DS ---
Physical Examination Vital Signs: Vital Signs Temperature 98.1 F 02/09/17 14:34 Pulse Rate 70 02/09/17 14:34 Respiratory Rate 20 02/09/17 14:34 Blood Pressure 148/90 02/09/17 09:00 O2 Sat by Pulse Oximetry (%) 96 02/09/17 10:00 Constitutional: Yes: No Distress HENT: Yes: Atraumatic Neck: Yes: Supple Cardiovascular: Yes: Regular Rate and Rhythm Respiratory: Yes: CTA Bilaterally Gastrointestinal: Yes: Normal Bowel Sounds Extremities: Yes: WNL Neurological: Yes: Alert, Oriented Discharge Summary Reason For Visit: END STAGE RENAL DISEASE; ALTERED MENTAL STATUS Current Active Problems Altered mental status (Acute) Diabetes (Acute) ESRD on peritoneal dialysis (Acute) Hypoglycemia (Acute) Condition: Fair - Instructions Diet, Activity, Other Instructions: need to see pmd regarding his diabetes meds see inspectors and regulatory officers stop glimiperide Referrals: Zane Amador MD [Staff Physician] - STAFF,NOT ON [Primary Care Provider] - - Home Medications Comprehensive Discharge Medication List: Ambulatory Orders Benzonatate [Tessalon Perle -] 100 mg PO TID #30 capsule 02/07/17 Furosemide [Lasix -] 40 mg PO DAILY 02/07/17 Insulin Glargine,Hum.rec.anlog [Lantus Solostar PEN -] 6 units SQ HS 02/07/17 Insulin NPH Hum/Reg Insulin Hm [Humulin 70/30 Kwikpen] 6 - 8 unit IVS TID Linagliptin [Tradjenta] 5 mg PO DAILY 02/07/17 Lisinopril 10 mg PO DAILY 02/07/17 Ezetimibe 0 mg PO BID 02/08/17 Glimepiride [Glimepiride -] 0 mg PO DAILY 02/08/17 Amoxicillin/Potassium Clav [Augmentin 875-125 Tablet] 1 each PO BID #14 tablet 02/09/17 dc home on p abx fu pmd/endocrine as out pt will dc glimpiride d/w pt and daughter med list and treatment plan
[2017-02-09 18:40] LABS: TROPONIN I 0.09 ng/ml (0.00-0.05)
== END 2017-02-09 19:27 | disposition home or self-care (01) ==
LOC: JER 09:53 → JERBED 12:52 → UNDOADMOB 12:52 → INTOOBSV 12:52 → JERBED 14:37 → J6S 14:37
PROVIDERS: ADMIT Internal Medicine; ATTEND Internal Medicine
PROC: 3E03329 Introduction of Other Anti-infective into Peripheral Vein, Percutaneous Approach (ICD-10-PCS; principal; 2017-02-08)
PROC: 3E033GC Introduction of Other Therapeutic Substance into Peripheral Vein, Percutaneous Approach (ICD-10-PCS; 2017-02-08)
PROC: 3E013VG Introduction of Insulin into Subcutaneous Tissue, Percutaneous Approach (ICD-10-PCS; 2017-02-08)
DX: R40.4 Transient alteration of awareness (principal); I12.0 Hypertensive chronic kidney disease with stage 5 chronic kidney disease or end stage renal disease; E11.22 Type 2 diabetes mellitus with diabetic chronic kidney disease; N18.6 End stage renal disease; E16.2 Hypoglycemia, unspecified; I50.9 Heart failure, unspecified; E78.5 Hyperlipidemia, unspecified; Z79.4 Long term (current) use of insulin; Z99.2 Dependence on renal dialysis; Z87.01 Personal history of pneumonia (recurrent); Z98.61 Coronary angioplasty status
CPT/HCPCS: 36415; 71010-TC; 80053; 81003; 81015; 82042; 82150; 82550; 82553; 82803; 82945; 83605; 83615; 84157; 84484; 85025; 85610; 85730; 86850; 86900; 86901; 87040; 87070; 87075; 87086; 87205; 89051; 93005; 93010; 99285-25; G0378

== ENCOUNTER 2023-12-30 18:31 | Inpatient (IN) | payer OTHER, BC ==
[2023-12-30 19:05] VITALS: BMI 28.8
[2023-12-30 19:08] LABS: VENOUS BASE EXCESS -4.2 mmol/L (-2-2); VENOUS O2 SATURATION 48.8 % (70-80); VENOUS PCO2 40.4 mmHg (38-52); VENOUS PH 7.339 (7.310-7.410)
[2023-12-30 19:16] LABS: BASO % 0.7 % (0-2.0); EOS % 0.5 % (0-4.5); HEMATOCRIT 36.2 % (35.4-49); HEMOGLOBIN 12.2 GM/dL (11.7-16.9); LYMPH % 8.2 % (8-40); MCH 32.5 pg (25.7-33.7); MCHC 33.8 g/dl (32.0-35.9); MEAN CELL VOLUME 96.2 fl (80-96); MEAN PLT VOLUME 7.6 fl (7.5-11.1); MONO % 5.2 % (3.8-10.2); NEUT % 85.4 % (42.8-82.8); PLATELET COUNT 246 10^3/uL (134-434); RBC 3.76 M/mm3 (4.00-5.60); RDW 14.2 % (11.9-15.9); WHITE BLOOD COUNT 7.5 K/mm3 (4.0-10.0)
[2023-12-30 19:34] LABS: CHLORIDE 94 mmol/L (98-107); SODIUM 129 mmol/L (136-145)
[2023-12-30 19:36] LABS: ALBUMIN 2.8 g/dl (3.4-5.0); ANION GAP 11 mmol/L (4-13); BLOOD UREA NITROGEN 58.3 mg/dL (7-18); CALCIUM 8.6 mg/dL (8.5-10.1); CO2 25 mmol/L (21-32); GLUCOSE,RANDOM 126 mg/dL (74-106); MAGNESIUM 2.5 mg/dL (1.8-2.4)
[2023-12-30 19:39] LABS: SGOT/AST 23 U/L (15-37); SGPT/ALT 41 U/L (13-61)
[2023-12-30 19:41] LABS: BILIRUBIN,TOTAL 0.3 mg/dL (0.2-1); TOT PROT 6.4 g/dl (6.4-8.2)
[2023-12-30 19:42] LABS: ALK PHOS 114 U/L (45-117)
[2023-12-30 19:56] LABS: CREATININE 13.2 mg/dL (0.55-1.3)
[2023-12-30] MEDS ORDERED: METOCLOPRAMIDE HCL INJECTION 10 MG/2 ML VIAL ONE (20:58)
[2023-12-30] MEDS ORDERED: ACETAMINOPHEN INJECTION 100 ML IVPB ONE (20:58)
[2023-12-30] MEDS: METOCLOPRAMIDE HCL INJECTION 10 MG/2 ML VIAL IVPUSH ONE (21:00)
[2023-12-30] MEDS: ACETAMINOPHEN 1000 MG/100 ML BAG IVPB ONE (21:16)
[2023-12-30 22:14] LABS: EPI CELLS 19 /uL (0-25.1); HYALINE CASTS 1 /uL (0-3.1); URINE APPEARANCE CLEAR; URINE BACTERIA 11 /uL (0-1359); URINE BILIRUBIN NEGATIVE (NEGATIVE); URINE COLOR YELLOW; URINE GLUCOSE (UA) 1+ (NEGATIVE); URINE KETONE NEGATIVE (NEGATIVE); URINE LEUK ESTERASE NEGATIVE (NEGATIVE); URINE NITRITE NEGATIVE (NEGATIVE); URINE PROTEIN 4+ (NEGATIVE); URINE RBC 69 /uL (0-23.9); URINE UROBILINOGEN 0.2 mg/dL (0.2-1.0); URINE WBC 37 /uL (0-25.8)
[2023-12-31] MEDS: DEXTROSE 10%-WATER - 1,000 ML IV SCH (02:30)
[2023-12-31 06:14] LABS: HEMATOCRIT 30.2 % (35.4-49); HEMOGLOBIN 10.4 GM/dL (11.7-16.9); MCH 32.7 pg (25.7-33.7); MCHC 34.4 g/dl (32.0-35.9); MEAN CELL VOLUME 95.2 fl (80-96); MEAN PLT VOLUME 7.3 fl (7.5-11.1); PLATELET COUNT 204 10^3/uL (134-434); RBC 3.17 M/mm3 (4.00-5.60); RDW 14.6 % (11.9-15.9)
[2023-12-31] MEDS ORDERED: SEVELAMER CARBONATE 800 MG TAB (FP) ONE (06:20)
[2023-12-31] MEDS ORDERED: HEPARIN NA (PORCINE) 5,000 UNITS/ML 1ML VIAL ONE (06:21)
[2023-12-31 06:37] LABS: CHLORIDE 94 mmol/L (98-107); POTASSIUM 3.9 mmol/L (3.5-5.1); SODIUM 130 mmol/L (136-145)
[2023-12-31 06:39] LABS: CALCIUM 7.9 mg/dL (8.5-10.1); GLUCOSE,RANDOM 104 mg/dL (74-106)
[2023-12-31 06:40] LABS: ALBUMIN 2.3 g/dl (3.4-5.0); ANION GAP 10 mmol/L (4-13); BLOOD UREA NITROGEN 61.9 mg/dL (7-18); CO2 26 mmol/L (21-32); MAGNESIUM 2.5 mg/dL (1.8-2.4)
[2023-12-31] MEDS: HEPARIN NA (PORCINE) 5,000 UNITS/ML 1ML VIAL SQ SCH (06:41)
[2023-12-31] MEDS: SEVELAMER CARBONATE 800 MG TAB (FP) PO SCH (06:41)
[2023-12-31 06:43] LABS: SGOT/AST 22 U/L (15-37); SGPT/ALT 35 U/L (13-61)
[2023-12-31 06:44] LABS: BILIRUBIN,TOTAL 0.3 mg/dL (0.2-1); TOT PROT 5.2 g/dl (6.4-8.2)
[2023-12-31 06:46] LABS: ALK PHOS 87 U/L (45-117)
[2023-12-31 07:16] LABS: PHOSPHOROUS 8.4 mg/dL (2.5-4.9)
[2023-12-31] MEDS ORDERED: SACUBITRIL/VALSARTAN 97 MG-103 MG TABLET PO SCH (10:00)
[2023-12-31] MEDS: FUROSEMIDE 40 MG TABLET (FP) PO SCH (11:13)
[2023-12-31] MEDS: CARVEDILOL 25 MG TABLET (FP) PO SCH (11:13)
[2023-12-31] MEDS: CALCITRIOL 0.25 MCG CAPSULE (FP) PO SCH (11:13)
[2023-12-31] MEDS: SACUBITRIL/VALSARTAN 97 MG-103 MG TABLET PO SCH (11:14)
[2023-12-31] MEDS: EZETIMIBE 10 MG TABLET (FP) PO SCH (11:15)
[2023-12-31 15:01] VITALS: RESP 18
[2023-12-31 15:06] VITALS: BP 142/79; PULSE 78; TEMP 98.3
[2023-12-31] MEDS: PERITONEAL DIALYSIS 2.5% SOLN 2,500 ML IP SCH (17:42)
[2023-12-31] MEDS ORDERED: ATORVASTATIN CA 20 MG TABLET (FP) PO SCH (22:00)
[2023-12-31] MEDS ORDERED: traZODone HCL 50 MG TABLET (FP) PO SCH (22:00)
== END 2023-12-31 18:53 | disposition home or self-care (01) | DRG 637 ==
LOC: JER 18:31 → JERBED 21:59 → INTOOBSV 12-31 00:40 → OBSVTOIN 12-31 00:40 → J4S 12-31 09:58
PROVIDERS: ADMIT Internal Medicine; ATTEND Internal Medicine
DX: E11.649 Type 2 diabetes mellitus with hypoglycemia without coma (principal); G93.41 Metabolic encephalopathy; I13.2 Hypertensive heart and chronic kidney disease with heart failure and with stage 5 chronic kidney disease, or end stage renal disease; N18.6 End stage renal disease; I16.0 Hypertensive urgency; Z99.2 Dependence on renal dialysis; E78.5 Hyperlipidemia, unspecified; I50.9 Heart failure, unspecified; R31.9 Hematuria, unspecified
CPT/HCPCS: 0241U-QW; 36415; 70450-TC; 71045-TC-FY; 73630-TC-RT-FY; 80053; 81003; 82803; 82962; 83735; 84100; 84484; 85025; 85027; 85730; 87086; 93005; 93010; 99285-25; G0378; J0131; J1644

== ENCOUNTER 2024-03-05 13:24 | Observation (INO) | payer OTHER, BC ==
[2024-03-05] MEDS ORDERED: TETRACAINE 0.5% OPHTH SOLN 2 ML BOTTLE ONE (14:11)
[2024-03-05] MEDS ORDERED: FLUORESCEIN NA 1 EA STRIP ONE (14:11)
[2024-03-05 15:05] LABS: BASO % 1.4 % (0-2.0); EOS % 8.3 % (0-4.5); HEMATOCRIT 25.7 % (35.4-49); HEMOGLOBIN 8.9 GM/dL (11.7-16.9); LYMPH % 13.7 % (8-40); MCH 33.4 pg (25.7-33.7); MCHC 34.5 g/dl (32.0-35.9); MEAN CELL VOLUME 96.8 fl (80-96); MEAN PLT VOLUME 7.7 fl (7.5-11.1); MONO % 8.6 % (3.8-10.2); PLATELET COUNT 188 10^3/uL (134-434); RBC 2.66 M/mm3 (4.00-5.60); RDW 14.7 % (11.9-15.9); WHITE BLOOD COUNT 5.1 K/mm3 (4.0-10.0)
[2024-03-05 15:51] LABS: CHLORIDE 94 mmol/L (98-107); SODIUM 128 mmol/L (136-145)
[2024-03-05 15:53] LABS: ALBUMIN 2.5 g/dl (3.4-5.0); ANION GAP 12 mmol/L (4-13); BLOOD UREA NITROGEN 73.1 mg/dL (7-18); CO2 22 mmol/L (21-32); GLUCOSE,RANDOM 128 mg/dL (74-106); MAGNESIUM 2.7 mg/dL (1.8-2.4)
[2024-03-05 15:56] LABS: SGOT/AST 21 U/L (15-37)
[2024-03-05 15:57] LABS: SGPT/ALT 30 U/L (13-61)
[2024-03-05 15:58] LABS: BILIRUBIN,TOTAL 0.4 mg/dL (0.2-1); TOT PROT 5.1 g/dl (6.4-8.2)
[2024-03-05 15:59] LABS: ALK PHOS 94 U/L (45-117)
[2024-03-05] MEDS: ACETAMINOPHEN 500 MG TABLET (FP) PO ONE (16:00)
[2024-03-05] MEDS ORDERED: ACETAMINOPHEN 325 MG TABLET (FP) ONE (16:06)
[2024-03-05 16:09] LABS: CREATININE 13.9 mg/dL (0.55-1.3)
[2024-03-05] MEDS ORDERED: SODIUM ZIRCONIUM CYCLOSILICATE (LOKELMA) 5 GM PACKET ONE (16:25)
[2024-03-05] MEDS ORDERED: CALCIUM GLUC IN NACL, ISO-OSM 1 GM/50 ML BAG IVPB ONE (16:27)
[2024-03-05] MEDS ORDERED: DEXTROSE 50%-WATER 25 GM/50 ML DISP.SYRIN ONE (16:27)
[2024-03-05] MEDS ORDERED: INSULIN REGULAR HUMAN 100 UNITS/ML *VIAL ONE (16:28)
[2024-03-05 16:42] LABS: EPI CELLS 8 /uL (0-25.1); HYALINE CASTS 6 /uL (0-3.1); URINE APPEARANCE CLEAR; URINE BACTERIA 16 /uL (0-1359); URINE BILIRUBIN NEGATIVE (NEGATIVE); URINE COLOR YELLOW; URINE GLUCOSE (UA) 1+ (NEGATIVE); URINE KETONE NEGATIVE (NEGATIVE); URINE LEUK ESTERASE NEGATIVE (NEGATIVE); URINE NITRITE NEGATIVE (NEGATIVE); URINE PROTEIN 4+ (NEGATIVE); URINE RBC 7 /uL (0-23.9); URINE UROBILINOGEN 0.2 mg/dL (0.2-1.0); URINE WBC 24 /uL (0-25.8)
[2024-03-05] MEDS: SODIUM ZIRCONIUM CYCLOSILICATE (LOKELMA) 5 GM PACKET PO ONE (16:52)
[2024-03-05] MEDS: CALCIUM GLUCONATE 10% - 1,000 MG/10 ML VIAL IVPB ONE (16:52)
[2024-03-05] MEDS: DEXTROSE 50%-WATER - 25 GM/50 ML VIAL IVPUSH ONE (17:17)
[2024-03-05] MEDS: INSULIN REGULAR HUMAN 100 UNITS/ML *VIAL IVPUSH ONE (17:17)
[2024-03-05] MEDS ORDERED: CEFTRIAXONE 1 GM/50 ML BAG ONE (18:18)
[2024-03-05] MEDS: CEFTRIAXONE 1,000 MG in DEXTROSE 5%-WATER - 50 ML IVPB ONE (18:21)
[2024-03-06] MEDS: MELATONIN 5 MG TABLETS PO ONE ×2 (00:52→04:01)
[2024-03-06] MEDS: SEVELAMER CARBONATE 800 MG TAB (FP) PO SCH ×2 (06:27→14:59)
[2024-03-06] MEDS: INSULIN ASPART SLIDING SCALE (NOVOLOG) 1 VIAL SQ SCH (06:39)
[2024-03-06 08:16] LABS: BASO % 2.3 % (0-2.0); EOS % 9.5 % (0-4.5); HEMATOCRIT 27.3 % (35.4-49); HEMOGLOBIN 9.4 GM/dL (11.7-16.9); MCH 33.7 pg (25.7-33.7); MCHC 34.4 g/dl (32.0-35.9); MEAN PLT VOLUME 7.9 fl (7.5-11.1); MONO % 8.9 % (3.8-10.2); NEUT % 65.3 % (42.8-82.8); PLATELET COUNT 202 10^3/uL (134-434); RBC 2.79 M/mm3 (4.00-5.60); RDW 14.4 % (11.9-15.9); WHITE BLOOD COUNT 5.6 K/mm3 (4.0-10.0)
[2024-03-06 08:48] LABS: CALCIUM 8.3 mg/dL (8.5-10.1)
[2024-03-06 08:49] LABS: ALBUMIN 2.5 g/dl (3.4-5.0); BLOOD UREA NITROGEN 80.2 mg/dL (7-18); CO2 23 mmol/L (21-32); GLUCOSE,RANDOM 116 mg/dL (74-106)
[2024-03-06 08:52] LABS: SGOT/AST 16 U/L (15-37); SGPT/ALT 28 U/L (13-61)
[2024-03-06 08:53] LABS: BILIRUBIN,TOTAL 0.4 mg/dL (0.2-1); TOT PROT 5.1 g/dl (6.4-8.2)
[2024-03-06 08:54] LABS: ALK PHOS 79 U/L (45-117)
[2024-03-06 09:20] LABS: ANION GAP 12 mmol/L (4-13); CHLORIDE 96 mmol/L (98-107); CREATININE 14.7 mg/dL (0.55-1.3); SODIUM 131 mmol/L (136-145)
[2024-03-06] MEDS: FUROSEMIDE 20 MG TABLET (FP) PO SCH (10:20)
[2024-03-06] MEDS: CARVEDILOL 25 MG TABLET (FP) PO SCH (10:20)
[2024-03-06] MEDS: EZETIMIBE 10 MG TABLET (FP) PO SCH (10:20)
[2024-03-06] MEDS: CALCITRIOL 0.25 MCG CAPSULE (FP) PO SCH (10:20)
[2024-03-06] MEDS: SODIUM ZIRCONIUM CYCLOSILICATE (LOKELMA) 5 GM PACKET PO SCH (12:39)
[2024-03-06] MEDS: PERITONEAL DIALYSIS 2.5% SOLN 2,500 ML IP SCH ×2 (14:07→20:06)
[2024-03-06 14:55] VITALS: BMI 29.8
[2024-03-06] MEDS: SODIUM ZIRCONIUM CYCLOSILICATE (LOKELMA) 5 GM PACKET PO ONE (20:02)
[2024-03-06] MEDS: ATORVASTATIN CA 20 MG TABLET (FP) PO SCH (21:01)
[2024-03-06] MEDS: INSULIN (LEVEMIR) 100 UNITS/ML UNITS SQ SCH (21:01)
[2024-03-06] MEDS: ZOLPIDEM TARTRATE 5 MG TABLET PO PRN (23:32)
[2024-03-07] MEDS: MELATONIN 5 MG TABLETS PO SCH (01:00)
[2024-03-07 07:48] LABS: HEMATOCRIT 28.7 % (35.4-49); MCH 33.8 pg (25.7-33.7); MCHC 34.9 g/dl (32.0-35.9); MEAN CELL VOLUME 96.9 fl (80-96); MEAN PLT VOLUME 7.5 fl (7.5-11.1); PLATELET COUNT 241 10^3/uL (134-434); RBC 2.96 M/mm3 (4.00-5.60); RDW 14.7 % (11.9-15.9); WHITE BLOOD COUNT 6.2 K/mm3 (4.0-10.0)
[2024-03-07 08:05] LABS: CHLORIDE 92 mmol/L (98-107); POTASSIUM 4.7 mmol/L (3.5-5.1); SODIUM 129 mmol/L (136-145)
[2024-03-07 08:09] LABS: CALCIUM 8.1 mg/dL (8.5-10.1)
[2024-03-07 08:10] LABS: ALBUMIN 2.7 g/dl (3.4-5.0); ANION GAP 12 mmol/L (4-13); BLOOD UREA NITROGEN 73.5 mg/dL (7-18); CO2 26 mmol/L (21-32); GLUCOSE,RANDOM 113 mg/dL (74-106)
[2024-03-07 08:12] LABS: SGOT/AST 16 U/L (15-37); SGPT/ALT 29 U/L (13-61)
[2024-03-07 08:15] LABS: ALK PHOS 74 U/L (45-117); BILIRUBIN,TOTAL 0.4 mg/dL (0.2-1); TOT PROT 5.7 g/dl (6.4-8.2)
[2024-03-07 11:51] LABS: BF WBC & OTHER NUCLEATED CELLS 35 /mm3; BODY FLUID MESOTHELIAL 6 %; BODY FLUID MONOCYTE 71 %
[2024-03-07] MEDS: SACUBITRIL/VALSARTAN 24 MG-26 MG TABLET PO SCH (14:34)
[2024-03-07] MEDS: TORSEMIDE 20 MG TABLET (FP) PO SCH (14:34)
[2024-03-07] MEDS: ACETAMINOPHEN 325 MG TABLET (FP) PO PRN (15:38)
[2024-03-08 12:33] VITALS: BP 148/82; PULSE 72; RESP 18; TEMP 98
== END 2024-03-08 14:53 | disposition home or self-care (01) ==
LOC: JER 13:24 → JERBED 16:24 → J4S 21:18
PROVIDERS: ADMIT Internal Medicine; ATTEND Internal Medicine
PROC: 3E03329 Introduction of Other Anti-infective into Peripheral Vein, Percutaneous Approach (ICD-10-PCS; principal; 2024-03-05)
PROC: 3E033GC Introduction of Other Therapeutic Substance into Peripheral Vein, Percutaneous Approach (ICD-10-PCS; 2024-03-05)
PROC: 3E033VG Introduction of Insulin into Peripheral Vein, Percutaneous Approach (ICD-10-PCS; 2024-03-05)
PROC: 3E013VG Introduction of Insulin into Subcutaneous Tissue, Percutaneous Approach (ICD-10-PCS; 2024-03-05)
DX: S00.11XA Contusion of right eyelid and periocular area, initial encounter (principal); R41.81 Age-related cognitive decline; I50.9 Heart failure, unspecified; E11.22 Type 2 diabetes mellitus with diabetic chronic kidney disease; W18.39XA Other fall on same level, initial encounter; R31.29 Other microscopic hematuria; Y93.89 Activity, other specified; Y92.003 Bedroom of unspecified non-institutional (private) residence as the place of occurrence of the external cause; I12.0 Hypertensive chronic kidney disease with stage 5 chronic kidney disease or end stage renal disease; N18.6 End stage renal disease; Z99.2 Dependence on renal dialysis; E78.5 Hyperlipidemia, unspecified; R53.83 Other fatigue; E87.1 Hypo-osmolality and hyponatremia
CPT/HCPCS: 0241U-QW; 36415; 70450-TC; 70486-TC; 71046-TC-FY; 72125-TC; 72170-TC-FY; 73130-TC-RT-FY; 73562-TC-RT-FY; 80048; 80053; 80307; 81003; 82140; 82962; 83036; 83735; 84484; 85025; 85027; 87070; 87075; 87086; 87186; 87205; 93005; 93010; 96365; 96372; 96375; 97116-GP; 97161-GP; 99285-25; G0378